=== PATIENT | female | born 1995 | race Caucasian/White ===

== ENCOUNTER 2019-10-16 08:14 | Emergency (ER) | payer SELFPAY ==
[2019-10-16 08:18] VITALS: BP 115/69; PULSE 93; RESP 16; TEMP 36.3; O2SAT 96; BMI 25.3
--- NOTE | 2019-10-16 08:24 | ED_ITS ---
Entered by Mahi Mathews, acting as scribe for Edy John DO HPI - General: Chief complaint: General Medical Stated complaint: With drawing 6 months preg no care Time Seen by Provider: 10/16/19 08:22 Source: patient Mode of arrival: ambulatory Limitations: no limitations History of Present Illness: HPI Narrative: 24 yo f came to the er from [facility] for care. Pt states that [facility] facility states that she needs to have care before she can get accepted. Pt also states that that she is a current meth user and that the last time that she used was 4 days ago. Pt is denying any vaginal bleeding or discharge at this time. MD Complaint: other (meth withdraw, is 6 months / last use was 4 days ago) Relieving factors: none Exacerbating factors: none Vaginal discharge: none Vaginal bleeding: none Number of Weeks : 26 weeks OB History - Current : no complications OB History - Previous Pregnancies: no complications care: none Associated symptoms: Deny abdominal pain, dysuria, nausea or vomiting Review of Systems Const: Denies: fever ENMT: Denies: throat pain, ear pain, nasal discharge or nasal congestion Card: Denies: chest pain, edema, shortness of breath on exertion or shortness of breath when lying down Resp: Denies: shortness of breath, productive cough or non-productive cough GI: Denies: abdominal pain, nausea, vomiting, vomiting blood, coffee grounds in vomit, diarrhea, constipation, bloating, blood in stool or black tarry stool : Denies: flank pain, difficulty urinating, painful urination, urinary frequency or urinary urgency Skin/Breast: Denies: rash or itching PFSH ED PFSH: Statuses (acute, chronic, etc) shown below reflect problem list status as previously entered and may not be historically accurate Social History (Updated 10/16/19 @ 12:37 by Marley Razo RN) Smoking and tobacco status: current every day smoker cigarettes Packs smoked per day: 0.5 Quit status (tobacco): has tried quititng Second hand smoke exposure: Yes Smoking risk assessment/counseling performed?: No (Pt was not interested in education) Alcohol intake: unknown Desire information about substance/drug rehabilitation?: No (Pt in [facility] at this time. ) Counseling given: No Last substance use date: 10/12/19 Physical Exam Const: COMMON NORMALS: no apparent distress GENERAL APPEARANCE: cooperative and comfortable ORIENTATION/CONSCIOUSNESS: Yes awake, Yes oriented to person, Yes oriented to place and Yes oriented to time HENMT: COMMON NORMALS: normocephalic, head/scalp atraumatic, hearing grossly normal bilaterally, external ears normal, EAC's normal, TM's normal bilaterally, nasal mucous membranes and turbinates normal, moist oral mucous membranes and oropharynx normal HEAD & SCALP: normocephalic and atraumatic NOSE: nasal mucous membranes and turbinates normal EXTERNAL EAR: Yes external ears normal EXTERNAL AUDITORY CANAL: EAC's normal TYMPANIC MEMBRANE: TM's normal bilaterally Eye: COMMON NORMALS: PERRL, EOMs intact bilaterally, conjunctivae normal and no scleral icterus CONJUNCTIVA: Yes conjunctivae normal PUPIL: Yes PERRL Neck/C-Spine: COMMON NORMALS: full ROM, no lymphadenopathy, supple and no JVD Lymph: LYMPHATIC: no lymphadenopathy noted and no lymphedema noted Resp: COMMON NORMALS: normal respiratory effort, no retractions, no use of accessory muscles and clear to auscultation bilaterally AUSCULTATION: clear to auscultation bilaterally Cardio: COMMON NORMALS: no JVD, regular rate, regular rhythm and no murmurs RATE: regular rate RHYTHM: regular rhythm Extremity: COMMON NORMALS: normal to inspection, normal capillary refill, no clubbing, cyanosis or edema, no calf tenderness and no pedal edema Neuro: SENSORIUM/ORIENTATION: Yes oriented to person, Yes oriented to place and Yes oriented to time Skin: COMMON NORMALS: no rashes or lesions noted GENERAL SKIN EXAM: no rashes or lesions noted Procedures Perimortem Number of Weeks : 26 weeks Course ED course: Patient has no ongoing medical issues she does need to be further evaluated and establish OB care. We will go ahead and have her go upstairs to the OB department where she can be monitored briefly we can try to get her set up for OB care on an outpatient basis. Vital Signs: Vital signs: Vital Signs Temperature 97.4 F L 10/16/19 08:18 Pulse Rate 93 10/16/19 08:18 Respiratory Rate 16 10/16/19 08:18 Blood Pressure 115/69 10/16/19 08:18 Pulse Oximetry 96 10/16/19 08:18 MDM - OB/Uterine Contractions Lab Data: Labs: Lab Results 10/16/19 10/16/19 10/16/19 Range/Units 08:38 08:38 08:38 WBC 10.1 H (4.0-10.0) 10^3/ uL RBC 3.49 L (4.1-5.3) 10^6/u L Hgb 11.2 L (11.5-15.3) g/dL Hct 33.8 L (37.0-47.0) % MCV 96.8 (81-99) fL MCH 32.1 (28.0-34.0) pg MCHC 33.1 (30.0-36.0) g/dL RDW 13.2 (12.1-15.1) % Plt Count 440 H (130-400) 10^3/c mm MPV 9.4 (7.4-10.4) fL Neut % (Auto) 69.8 % Lymph % (Auto) 21.9 % Sierra % (Auto) 5.5 % Eos % (Auto) 1.9 % Baso % (Auto) 0.3 % Neut # (Auto) 7.1 (1.8-7.7) 10^3/u L Lymph # (Auto) 2.2 (0.8-4.8) 10^3/u L Sierra # (Auto) 0.6 (0.2-0.9) 10^3/u L Eos # (Auto) 0.2 (0.0-0.8) 10^3/u L Baso # (Auto) 0.0 (0.0-0.1) 10^3/u L Nucleated RBC % (a uto) 0 % Nucleated RBCs # 0.0 /100WBC Sodium 137 (136-145) mmol/L Potassium 3.8 (3.5-5.1) mmol/L Chloride 106 (98-107) mmol/L Carbon Dioxide 17 L (22-29) mmol/L Anion Gap 17.8 (5-19) BUN 6 (6-20) mg/dL Creatinine 0.3 L (0.5-0.9) mg/dL GFR Calculation 271.1 H (90-130) mL/min Glucose 131 H (74-109) mg/dL Calcium 8.6 (8.6-10.0) mg/Dl Total Bilirubin 0.2 (0.15-1.2) mg/dL AST 11 (0-32) U/L ALT 13 (0-33) U/L Alkaline Phosphata se 121 H (35-105) IU/L Total Protein 5.9 L (6.6-8.7) g/dL Albumin 3.1 L (3.5-5.2) g/dL Globulin 2.8 (1.3-4.6) g/dL Urine Color (Yellow) Urine Appearance (CLEAR) Urine pH (5-7) Ur Specific Gravit y (1.005-1.030) Urine Protein (Negative) Urine Glucose (UA) (Normal) Urine Ketones (Negative) Urine Occult Blood (Negative) Urine Nitrate (Negative) Urine Bilirubin (NEGATIVE) Urine Urobilinogen (Negative) mg/dL Ur Leukocyte Rissa ase (Negative) Blood Type O Positive 10/16/19 Range/Units 08:52 WBC (4.0-10.0) 10^3/ uL RBC (4.1-5.3) 10^6/u L Hgb (11.5-15.3) g/dL Hct (37.0-47.0) % MCV (81-99) fL MCH (28.0-34.0) pg MCHC (30.0-36.0) g/dL RDW (12.1-15.1) % Plt Count (130-400) 10^3/c mm MPV (7.4-10.4) fL Neut % (Auto) % Lymph % (Auto) % Sierra % (Auto) % Eos % (Auto) % Baso % (Auto) % Neut # (Auto) (1.8-7.7) 10^3/u L Lymph # (Auto) (0.8-4.8) 10^3/u L Sierra # (Auto) (0.2-0.9) 10^3/u L Eos # (Auto) (0.0-0.8) 10^3/u L Baso # (Auto) (0.0-0.1) 10^3/u L Nucleated RBC % (a uto) % Nucleated RBCs # /100WBC Sodium (136-145) mmol/L Potassium (3.5-5.1) mmol/L Chloride (98-107) mmol/L Carbon Dioxide (22-29) mmol/L Anion Gap (5-19) BUN (6-20) mg/dL Creatinine (0.5-0.9) mg/dL GFR Calculation (90-130) mL/min Glucose (74-109) mg/dL Calcium (8.6-10.0) mg/Dl Total Bilirubin (0.15-1.2) mg/dL AST (0-32) U/L ALT (0-33) U/L Alkaline Phosphata se (35-105) IU/L Total Protein (6.6-8.7) g/dL Albumin (3.5-5.2) g/dL Globulin (1.3-4.6) g/dL Urine Color Yellow (Yellow) Urine Appearance Clear (CLEAR) Urine pH 6.0 (5-7) Ur Specific Gravit y 1.015 (1.005-1.030) Urine Protein Neg (Negative) Urine Glucose (UA) Norm (Normal) Urine Ketones Negative (Negative) Urine Occult Blood Neg (Negative) Urine Nitrate Negative (Negative) Urine Bilirubin Neg (NEGATIVE) Urine Urobilinogen Norm (Negative) mg/dL Ur Leukocyte Rissa ase Negative (Negative) Blood Type Discharge Plan Discharge Patient Disposition: Home, Self-Care w Plan Readm Clinical Impression: Currently , Substance abuse affecting in second trimester, antepartum Condition: Stable Prescriptions: No Action No Known Home Medications RF: 0 Discharge Orders: Discharge Order (Routine); Ordered 10/16/19 Ordered By: Edy John Discharge Diet: Usual diet Discharge Activity: Resume usual activity Interventions: ED Discharge Assessment Last Done: 10/16/19 08:56 Discharge Date/Time: 10/16/19 09:06 Coding Level of Care Code ED Veneer Sorter for Chg Fwd Exam Problem Focused The documentation recorded by the Reid nguyễn Stephanie Lyn, accurately reflects the service I personally performed and the decisions made by Alvaro arnold Curtis L, Oct 16, 2019 08:14
[2019-10-16 08:46] LABS: Basophils % 0.3 %; Eosinophils # 0.2 10^3/uL (0.0-0.8); Eosinophils % 1.9 %; Hematocrit 33.8 % (37.0-47.0); Hemoglobin 11.2 g/dL (11.5-15.3); Lymphocytes # 2.2 10^3/uL (0.8-4.8); Lymphocytes % 21.9 %; Mean Corpuscular HGB Conc 33.1 g/dL (30.0-36.0); Mean Corpuscular Hemoglobin 32.1 pg (28.0-34.0); Mean Corpuscular Volume 96.8 fL (81-99); Mean Platelet Volume 9.4 fL (7.4-10.4); Monocytes # 0.6 10^3/uL (0.2-0.9); Monocytes % 5.5 %; Neutrophils # 7.1 10^3/uL (1.8-7.7); Neutrophils % 69.8 %; Nucleated Red Blood Cells % 0 %; Platelet Count 440 10^3/cmm (130-400); Red Blood Count 3.49 10^6/uL (4.1-5.3); Red Cell Distribution Width 13.2 % (12.1-15.1); White Blood Count 10.1 10^3/uL (4.0-10.0)
[2019-10-16 09:01] LABS: Add Urine Microscopic? NO
[2019-10-16 09:03] LABS: Alanine Aminotransferase 13 U/L (0-33); Albumin Level 3.1 g/dL (3.5-5.2); Alkaline Phosphatase 121 IU/L (35-105); Anion Gap 17.8 (5-19); Aspartate Amino Transferase 11 U/L (0-32); Blood Urea Nitrogen 6 mg/dL (6-20); Calcium 8.6 mg/Dl (8.6-10.0); Carbon Dioxide 17 mmol/L (22-29); Chloride 106 mmol/L (98-107); Globulin 2.8 g/dL (1.3-4.6); Glomerular Filtration Rate 271.1 mL/min (90-130); Glucose 131 mg/dL (74-109); Potassium 3.8 mmol/L (3.5-5.1); Sodium 137 mmol/L (136-145); Total Bilirubin 0.2 mg/dL (0.15-1.2); Total Protein 5.9 g/dL (6.6-8.7)
[2019-10-16 09:28] LABS: Bilirubin Urine Neg (NEGATIVE); Blood Urine Neg (Negative); Glucose Urine UA Norm (Normal); Ketones Urine Negative (Negative); Leukocyte Esterase Urine Negative (Negative); Nitrate Urine Negative (Negative); Protein Urine Neg (Negative); Specific Gravity, Urine 1.015 (1.005-1.030); Urine Appearance Clear (CLEAR); Urine Color Yellow (Yellow); Urobilinogen Urine Norm (Negative)
--- NOTE | 2019-10-16 14:58 | DCPLANNER ---
strategic marketing manager was asked to speak with patient about getting established with a primary care physician. Patient was being treated by the OB department. strategic marketing manager spoke with patient, and it was decided that correctional casework specialist would call patient in a few days after patient is discharged from the hospital, to see if patient will need help in getting established with a physician. Patient stated that she is currently residing at [facility], that correctional casework specialist will call patient at the facility. strategic marketing manager told patient that she would have to fill out a consent form, in order for correctional casework specialist to be able to speak with patient.
== END 2019-10-16 09:06 | disposition home or self-care, planned readmission (81) ==
LOC: ER 08:33
PROVIDERS: Emergency Provider Family Medicine
DX: O99.322 Drug use complicating pregnancy, second trimester (principal); F15.10 Other stimulant abuse, uncomplicated; Z3A.26 26 weeks gestation of pregnancy; O99.332 Smoking (tobacco) complicating pregnancy, second trimester; F17.210 Nicotine dependence, cigarettes, uncomplicated
CPT/HCPCS: 36415; 80053; 81003; 85025; 86900; 99281; A9270

== ENCOUNTER 2019-10-16 09:11 | Outpatient (CLI) | payer SELFPAY ==
--- NOTE | 2019-10-16 09:47 | US_ITS ---
WS: [id number] OBSTETRICAL ULTRASOUND COMPLETE HISTORY: no care COMPARISON: None available. Single intrauterine gestation in Cephalic presentation. Cervix is Closed and normal length. Cervical length is 4.0 cm. Normal amount of amniotic fluid surrounds the fetus. Placenta: Anterior, no previa or abruption. Placenta grade 1 Heart: 131 BPM. Valve plane between the RIGHT heart chambers is difficult to visualize. Outflow tract s are all also difficult to visualize which is due to the late gestational age. Anatomy: Evaluation of intracranial structures and spine is limited by late gestational age. No abnor mality identified. Measurements are performed in suboptimal location. kidneys, stomach and urin madelyn bladder are unremarkable. Abdominal wall, three-vessel cord and cord insertion site are normal. 4 extremities are present. profile: Unremarkable. Gender: Female. measurements: BPD = 6.8 cm = 27w2d HC = 25.6 cm = 27w6d AC = 22.5 cm = 26w6d FL = 5.1 cm = 27w2d EFW: 1032 g., 55th %. Measurements are internally concordant. AGA by ultrasound: 27w0d CEM by ultrasound: 01/15/2020 US/US OB >= 14 weeks fetus [id number] IMPRESSION: 1. Single intrauterine gestation of 27w0d with an EDC of 01/15/2020. 2. Evaluation of anatomy is limited due to late gestational age. Limited evaluation of the heart and outflow chambers and intracranial structures. No a bnormality is identified. 3. Normal amniotic fluid.
--- NOTE | 2019-10-16 10:11 | PC.NURSE ---
Ultrasound at bedside.
[2019-10-16 10:55] VITALS: BMI 25.3
[2019-10-16 11:04] LABS: Amphetamines Screen Urine Negative (Negative); Barbiturates Screen Urine Negative (Negative); Benzodiazepines Screen Urine Negative (Negative); Cocaine Screen Urine Negative (Negative); Opiate Screen Urine Negative (Negative); PCP Screen Urine Negative (Negative); THC Screen Urine Positive (Negative)
[2019-10-16 11:43] VITALS: BP 123/57; PULSE 81; RESP 20; TEMP 36.4
[2019-10-16 12:53] VITALS: BMI 25.3
[2019-10-20 23:59] LABS: Hepatitis B Surface Antigen. Non-Reactive (Nonreactive)
[2019-10-21 11:37] LABS: Rapid Plasma Reagin Syphilis Nonreactive (Nonreactive)
== END 2019-10-16 12:00 | disposition home or self-care (01) ==
LOC: OPOB 09:26 → OBGYN 11:58 → OPOB 17:55
PROVIDERS: Visit Provider Family Medicine
DX: O09.30 Supervision of pregnancy with insufficient antenatal care, unspecified trimester (principal); Z3A.00 Weeks of gestation of pregnancy not specified
CPT/HCPCS: 76805; 80307; 86592; 86850; 86900; 87340; 99211

== ENCOUNTER 2019-10-19 08:15 | Outpatient (CLI) | payer MEDICAID, SELFPAY ==
[2019-10-19 08:40] VITALS: BP 105/62; PULSE 84; RESP 16; TEMP 36.8; O2SAT 98
[2019-10-19 09:12] VITALS: BMI 25.3
[2019-10-19] MEDS: acetaminophen 325 mg Tablet 650 MG PO (09:31)
[2019-10-19 09:45] VITALS: BP 105/62; PULSE 84; RESP 16; TEMP 36.8; O2SAT 98
--- NOTE | 2019-10-19 09:59 | PC.NURSE ---
Summary Pt to L/D via ambulance at 0815 from [facility] [place]. Pt states that at 0630 she began experiencing twinges of pain in her lower abdomen and back, states it happens once every 15-30 minutes and lasts about 15 seconds per episode. Pt states she does not feel like it is contractions, that she doesn't feel an examination is necessary she is not in labor. Pt placed on monitors at 0833, SVE at 0835 cervix closed/thick/high. Pt requesting to use phone to [facility] for [facility] call. Baby difficulty to keep on EFM due to gestation, movement, and maternal movement, pt moving around in bed. Water provided, pt drank only 1/4 of pitcher, and states at 0900 she feels better and wants to have her friend pick her up. No ctx noted on monitor, and FHT appropriate for gestation. Dr Lal called and d/c orders received, instructed to have pt take Tylenol 650mg PO Q6H PRN pain and rest. Attempted to call [facility] 4 times,each time no answer, message left with no returned phone call. At 0945 pt friend here stating she will drive her to [facility], pt left ambulatory denying pain. [facility] called at [phone] asking for update on pt, informed she had left 10 minutes ago, not in labor.
== END 2019-10-19 09:45 | disposition home or self-care (01) ==
LOC: OPOB 08:25 → OBGYN 09:22 → OPOB 10-20 17:15
PROVIDERS: Visit Provider Family Medicine
DX: O26.899 Other specified pregnancy related conditions, unspecified trimester (principal); Z3A.00 Weeks of gestation of pregnancy not specified; R10.9 Unspecified abdominal pain
CPT/HCPCS: 99211